=== PATIENT | female | born 1940 | race Caucasian/White ===

== ENCOUNTER 2017-08-06 10:40 | Inpatient (IN) | payer OTHER ==
[~2017-08-06] VITALS: Ht 160 cm; Wt 102.1 kg
[~2017-08-06 10:40] MED LIST: ACETAMINOPHEN500 M4 PO; AMLODIPINE BESY10 M1 PO; AMOX-CLAV 875-1 EACH PO; ASPIRIN EC81 M1 PO; ATORVASTATIN CA20 M1 PO; BENEFIBER152 GM PO; CLOTRIMAZOLE10 M1 PO; COLACE100 M1 PO; COLACE100 MG PO; GLIMEPIRIDE4 M1 PO; HYDROCHLOROTH12.5 M3 PO; JANUVIA25 MG PO; JANUVIA50 M1 PO; LEVOTHYROXINE25 MCG PO; LOSARTAN POTASS25 M1 PO; METROCREAM45 GM TOP; MINOCYCLINE HC100 M1 PO; MIRALAX17 G1 PO; MUPIROCIN22 GM TOP; PERCOCET 325 MG1 TA2 PO; POTASSIUM CITR10 ME1 PO; SENOKOT NATURA8.6 MG PO; TAMIFLU30 M1 PO; VOLTAREN100 GM TOP
[2017-08-06 11:52] LABS: ABSOLUTE BASOPHIL COUNT 0 /CUMM (0.0-0.2); ABSOLUTE EOSINOPHIL COUNT 0.2 /CUMM (0.0-0.7); ABSOLUTE LYMPH COUNT 1.9 /CUMM (1.2-3.4); ABSOLUTE MONOCYTE COUNT 0.8 /CUMM (0.10-0.60); BASOPHIL % 0.2 % (0.0-2.0); EOSINOPHIL % 1.3 % (0-5); GRANULOCYTE % 82.8 % (42.2-75.2); HEMATOCRIT 37.7 % (37-47); MEAN CORPUSCULAR HGB CONC 32.9 G/DL (33.0-37.0); MEAN CORPUSCULAR VOLUME 85.1 FL (81.0-99.0); MEAN PLATELET VOLUME 6.7 FL (7.4-10.4); PLATELET COUNT 279 /CUMM (130-400); RBC DISTRIBUTION WIDTH 16.1 % (11.5-14.5); RED BLOOD CELL CT 4.43 /CUMM (4.20-5.40); WHITE BLOOD CELL COUNT 16.9 /CUMM (4.8-10.8)
--- NOTE | 2017-08-06 12:10 | CT SCAN REPORT ---
EXAMINATION: CT HEAD WITHOUT CONTRAST CLINICAL INFORMATION: Syncope. COMPARISON: CT head 03/28/2016. TECHNIQUE: Contiguous axial imaging was performed from the skull base to vertex without intravenous administration of contrast. DLP: 608.88 mGy-cm FINDINGS: There is no acute intracranial hemorrhage or abnormal extra-axial collection. No intracranial mass effect midline shift. Lateral and third ventricles are normal. No hydrocephalus. Greenberg-white matter differentiation is grossly preserved and there is no evidence of acute territorial infarct. The calvarium and skull base are intact. Mastoid air cells and middle ear cavities are well-aerated. Visualized paranasal sinuses are well-aerated. IMPRESSION: Unremarkable CT scan of the head. No evidence of acute territorial infarct or hemorrhage.
--- NOTE | 2017-08-06 12:33 | ED SYNCOPE COMPLAINT ---
History of Present Illness General Chief Complaint: Syncope and Near-Syncope Stated Complaint: BIBA SYNCOPE Source: patient, old records Exam Limitations: no limitations Vital Signs & Intake/Output Vital Signs & Intake/Output Vital Signs Date Time Temp Pulse Resp B/P B/P Pulse O2 O2 Flow FiO2 Mean Ox Delivery Rate 08/06 1227 Room Air 08/06 1119 97.9 97 15 128/70 94 Room Air Room Air Allergies Coded Allergies: orange juice (Intermediate, SCRATCHY THROAT 08/06/17) [place] And Derivatives (SCRATCHY THROAT 08/06/17) lemon (LEMON JUICE SCRATCHY THROAT 08/06/17) morphine (SYNCOPE 08/06/17) sulfamethoxazole (From BACTRIM) (NAUSEA, LIGHT HEADED 08/06/17) trimethoprim (From BACTRIM) (NAUSEA, LIGHT HEADED 08/06/17) Reconcile Medications Acetaminophen 500 MG TABLET 1 TAB PO BID PRN PAIN (Reported) Amlodipine Besylate 10 MG TABLET 1 TAB PO DAILY BP (Reported) Aspirin (Ecotrin*) 81 MG TABLET.DR 1 TAB PO DAILY HEART/BLOOD (Reported) Atorvastatin Calcium 20 MG TABLET 1 TAB PO QHS CHOLESTEROL (Reported) Glimepiride 4 MG TABLET 1 TAB PO DAILY DM (Reported) Hydrochlorothiazide 12.5 MG CAPSULE 1 CAP PO DAILY DIURETIC (Reported) Levothyroxine Sodium 25 MCG TABLET 1 TAB PO DAILY THYROID (Reported) Losartan Potassium 25 MG TABLET 1 TAB PO DAILY BP (Reported) Metformin HCl 500 MG TABLET 1 TAB PO BID DIABETES (Reported) Metronidazole (Metrocream) 0.75 % CREAM..G. 1 DUY TOP BID ROSACEA (Reported) apply to affected area(s) Polyethylene Glycol 3350 (Miralax) 17 GRAM POWD.PACK 1 PAC PO DAILY GI ( Reported) dissolve in water Potassium Citrate (Potassium Citrate ER) 10 MEQ (1,080 MG) TABLET.ER 1 TAB PO BID KIDNEY STONES (Reported) Sitagliptin Phosphate (Januvia) 50 MG TABLET 1 TAB PO DAILY DM (Reported) Triage Note: PT BIBA FROM HOME FOR C/C OF LIGHTHEADEDNESS AND "WOOZY" FEELING THIS MORNING. PT REPORTS THAT THIS MORNING SHE HAD +LOC FOR UNKNOWN AMOUNT OF TIME. PT HAS PASSED OUT IN THE PAST AND SAT DOWN BEFORE SHE PASSED OUT. NO FALL. +SOB ON EXERTION. WENT TO [employer] YESTERDAY AND HAD MULTIPLE TESTS DONE, BUT UNSURE OF RESULTS. Triage Nurses Notes Reviewed? yes Timing: single episode today Precipitating Factors: lightheadedness Loss of Consciousness: brief (seconds) HPI: 77-year-old female comes into the emergency room for further evaluation after having a syncopal episode that occurred at home. Patient reports that she was feeling lightheaded and dizzy and she was on the toilet brushing her teeth and that she lost consciousness. She denies any associated chest pain shortness of breath. She reports that she has had this happen to her prior. The last time was a couple years ago. She comes in for further evaluation. (Rodri Toro) Past History Travel History Traveled to [place] past 21 day No Medical History Any Pertinent Medical History? 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 No (Rodri Toro) Review of Systems Review of Systems Constitutional: Reports: no symptoms. EENTM: Reports: no symptoms. Respiratory: Reports: no symptoms. Cardiovascular: Reports: see HPI. GI: Reports: no symptoms. Genitourinary: Reports: no symptoms. Musculoskeletal: Reports: no symptoms. Skin: Reports: no symptoms. Neurological/Psychological: Reports: no symptoms. All Other Systems: Reviewed and Negative (Rodri Toro) Physical Exam Physical Exam General Appearance: well developed/nourished, alert, awake Head: atraumatic Eyes: Bilateral: normal appearance. Ears, Nose, Throat: normal ENT inspection, hearing grossly normal Neck: normal inspection Respiratory: normal breath sounds, no respiratory distress Cardiovascular: regular rate/rhythm Back: normal inspection Extremities: normal inspection Psychiatric: awake, alert, oriented x 3 Cranial Nerves: normal hearing, normal speech Motor/Sensory: no motor/sensory deficits Skin: intact, normal color Core Measures ACS in differential dx? Yes CVA/TIA Diagnosis: No Sepsis Present: No Sepsis Focused Exam Completed? No (Rodri Toro) Progress Differential Diagnosis: AMI, aortic valve, drug induced syncope, orthostatic syncope, other valvular disease, pacemaker malfunction, pulmonary embolus, sick sinus syndrome, TIA/CVA, vasodepressor syncope, ventricular tach/fib Diagnostic Imaging: Viewed by Me: Radiology Read, CT Scan. Discussed w/RAD: Radiology Read, CT Scan. Radiology Impression: PATIENT: WILBERTO HELLER PRESENT AGE: 77 PATIENT ACCOUNT NO: [id number] : 42 LOCATION: [facility] ORDERING PHYSICIAN: Leonid Ni MD SERVICE DATE: 08/06/17 EXAM TYPE : RAD - XRY-CHEST XRAY, TWO VIEWS EXAMINATION: XR CHEST CLINICAL INFORMATION: Syncope COMPARISON: Chest CT dated 07/22/2017 TECHNIQUE: 2 views of the chest were obtained. FINDINGS: The heart is enlarged and there is no evidence of CHF. There is some tenting of the left hemidiaphragm, but the costophrenic angles are sharp and there is no evidence of effusion. Similar findings were present on the recent CT scan. IMPRESSION: No acute intrathoracic disease. DICTATED BY: Janusz Richmond MD DATE/TIME DICTATED:08/06/171207 COSMETOLOGIST:ZORAN DATE/ TIME TRANSCRIBED:08/06/171207 CONFIDENTIAL, DO NOT COPY WITHOUT APPROPRIATE AUTHORIZATION. <Electronically signed in Other Vendor System> SIGNED BY: Janusz Richmond MD 08/06/17 1234, PATIENT: WILBERTO HELLER PRESENT AGE: 77 PATIENT ACCOUNT NO: [id number] : 42 LOCATION: [facility] ORDERING PHYSICIAN: Leonid Ni MD SERVICE DATE: 08/06/17 EXAM TYPE : CAT - CT HEAD WO IV CONTRAST EXAMINATION: CT HEAD WITHOUT CONTRAST CLINICAL INFORMATION: Syncope. COMPARISON: CT head 03/28/2016. TECHNIQUE: Contiguous axial imaging was performed from the skull base to vertex without intravenous administration of contrast. DLP: 608.88 mGy-cm FINDINGS: There is no acute intracranial hemorrhage or abnormal extra-axial collection. No intracranial mass effect midline shift. Lateral and third ventricles are normal. No hydrocephalus. Greenberg-white matter differentiation is grossly preserved and there is no evidence of acute territorial infarct. The calvarium and skull base are intact. Mastoid air cells and middle ear cavities are well-aerated. Visualized paranasal sinuses are well-aerated. IMPRESSION: Unremarkable CT scan of the head. No evidence of acute territorial infarct or hemorrhage. DICTATED BY: Moe Glez MD DATE /TIME DICTATED:08/06/171203 COSMETOLOGIST:ZORAN DATE/TIME TRANSCRIBED: 08/06/171203 CONFIDENTIAL, DO NOT COPY WITHOUT APPROPRIATE AUTHORIZATION. < Electronically signed in Other Vendor System> SIGNED BY: Moe Glez MD 08/06/17 1210 Initial ED EKG: normal sinus rhythm, rate (99), nonspecific ST T wave chg (Rodri Toro) Plan of Care: Orders Procedure Date/time Status TSH REFLEX 08/07 0600 Active Consistent Carbohydrate 1 08/06 D Active Patient Data 08/06 1545 Active Misc Message 08/06 1538 Active ED Holding Orders 08/06 1538 Active Admit to inpatient 08/06 1538 Active Vital Signs 08/06 1538 Active Code Status 08/06 1538 Active URINALYSIS 08/06 1302 Active MISTAKE 08/06 1113 Active TROPONIN LEVEL 08/06 1113 Complete COMPREHENSIVE METABOLIC PANEL 08/06 1113 Complete CBC WITHOUT DIFFERENTIAL 08/06 1113 Complete EKG 08/06 1043 Active Laboratory Tests 08/06/17 1132: Anion Gap 15, Estimated GFR 34 L, BUN/Creatinine Ratio 15.3, Glucose 159 H, Calcium 9.3, Total Bilirubin 0.7, AST 24, ALT 28, Alkaline Phosphatase 72, Troponin I < 0.01, Total Protein 7.7, Albumin 4.0, Globulin 3.7, Albumin/ Globulin Ratio 1.1, CBC w Diff MAN DIFF ORDERED, RBC 4.43, MCV 85.1, MCH 28.0, MCHC 32.9 L, RDW 16.1 H, MPV 6.7 L, Gran % 82.8 H, Lymphocytes % 11.0 L, Monocytes % 4.7, Eosinophils % 1.3, Basophils % 0.2, Absolute Granulocytes 14.0 H, Segmented Neutrophils 77 H, Band Neutrophils 4, Absolute Lymphocytes 1.9, Lymphocytes 12 L, Monocytes 5, Absolute Monocytes 0.8 H, Eosinophils 2, Absolute Eosinophils 0.2, Absolute Basophils 0, Platelet Estimate VERIFIED BY SMEAR, Normocytic RBCs VERIFIED, Normochromic RBCs VERIFIED Comments: 08/06/2017 3:35:50 PM patient's case discussed with Dr. Conley. (Raine LOCK,Leonid Jenkins) Departure Departure Disposition: STILL A PATIENT Condition: Stable Clinical Impression Primary Impression: Syncope Secondary Impressions: Leukocytosis Referrals: Mariam Billings MD (PCP/Family) Departure Forms: Customer Survey General Discharge Information Admission Note Spoke With: Jacky Conley MD Documentation of Exam: Documentation of any treatments & extenuating circumstances including Concerns Regarding Discharge (functional status, medication knowledge or non-compliance, living conditions, etc.) that warrant an admission rather than observation: Cardiac telemetry. Serial troponins. Echocardiogram. Cardiac consultation. (Rodri Toro) PA/CORPORATE RELATIONS DIRECTOR Co-Sign Statement Statement: ED Attending supervision documentation- [X] I saw and evaluated the patient. I have also reviewed all the pertinent lab results and diagnostic results. I agree with the findings and the plan of care as documented in the PA's/CORPORATE RELATIONS DIRECTOR's documentation. Patient presents for evaluation of a syncopal episode while sitting on her toilet. Physical examination reveals nonfocal neurologic examination and unremarkable heart-lung examination. [] I have reviewed the ED Record and agree with the PA's/CORPORATE RELATIONS DIRECTOR's documentation. [] Additions or exceptions (if any) to the PAs/CORPORATE RELATIONS DIRECTOR's note and plan are summarized below: [] (Raine LOCK,Leonid Jenkins)
[2017-08-06] MEDS ORDERED: METFORMIN HCL500 M3 PO (12:54)
--- NOTE | 2017-08-06 15:54 | History & Physical ---
Luisana LOCKPaulo 08/06/17 1554: General Information and HPI History of Present Illness: 77-year-old woman with past medical history of hypertension, chronic kidney disease stage III, nephrolithiasis, eym-jyksosi-vwtqaedcz diabetes mellitus, hypothyroidism, osteoarthritis, and vasovagal syncope seen for evaluation of lightheadedness with loss of consciousness. Patient reports waking today in her normal state of health around 9 AM when she went to use the restroom and had a large formed bowel movement. She went to sit on the couch after but suddenly had to have another bowel movement which was subsequently loose. Patient went to brush her teeth when she was standing at the sink and suddenly became very lightheaded and dizzy. She sat down on the toilet and grabbed onto the insult handlebar. She lost consciousness for an unknown amount of time but awoke still sitting on the toilet. She did not become incontinent of urine or have any preceding aura. She did not bite her tongue or sustain any injuries. Patient reports not taking her medications or drinking any fluids or eating breakfast this morning. She reports that this happened several times in the past but was scared and called 911 for which she is brought to the [facility] for further evaluation. Presently she states that she feels well and has no complaints. Review of systems Specifically she denies any headache, fever, chills, blurred/double vision, current lightheadedness/dizziness, chest pain, palpitations, heartburn, orthopnea, PND, shortness of breath, cough, nausea, vomiting, diarrhea, constipation. Objective Vital signs -Temperature: 97.9 -Heart rate: 97 -Respiratory rate: 15 -Blood pressure: 128/70 -O2 sat: 94% on room air Physical exam -Gen.: Well-developed, well-nourished elderly woman in no acute distress -HEENT: NCAT, PERRLA, EOMI, anicteric sclera, moist mucous membranes -Neck: Supple, no JVD, trachea midline -Cardio: Normal S1/S2 without murmurs/gallops/rubs; tachycardic -Pulmonary: Clear to auscultation bilaterally -Abdomen: Soft, nontender, nondistended, bowel sounds intact -Neuro: Awake and alert, cranial nerves II through XII grossly intact -Extremities: Trace bilateral pedal edema Labs/imaging/studies -CBC: WBC/band 16.9/4, hemoglobin 12.4, hematocrit 37.7, platelets 279 -BMP: Sodium 138 potassium 4.5, chloride 101, CO2 22, urea 23, creatinine 1.5, anion gap 15, glucose 159 -LFT: Within normal limits -Miscellaneous: Troponin I <0.01 -EKG: normal sinus rhythm, HR 90, nonspecific ST segment changes and inferior leads -CXR: No acute intrathoracic disease -CT head without IV contrast: * Unremarkable CT scan of the head. No evidence of acute territorial infarct or hemorrhage. Assessment 77-year-old woman with multiple medical problems significant for vasovagal syncope seen for evaluation after sustaining another syncopal episode. Patient meets SIRS criteria through leukocytosis and tachycardia without any obvious infectious source. Chest x-ray and urinalysis are unremarkable. Patient's syncopal episode may be due to the patient missing her medication this morning and not eating/drinking with relative dehydration due to frequent loose bowel movements and straining increasing vagal tone. Patient has tachycardia of unclear etiology up to the 140s that appear sinus but quickly reverts to the 100s-110s. Patient is to be admitted to the telemetry floor for further monitoring and be evaluated by the cardiology service with a repeat echocardiogram and serial EKG/ troponin. Patient's orthostatic blood pressures will be assessed and she will be gently hydrated with intravenous fluids. Problem List -Syncope, likely vasovagal -SIRS, no clear source -Loose stool -Chronic Kidney Disease -Shortness of breath, reportedly may have "Sjogrens" -Non-insulin dependent diabetes mellitus -History of vasovagal syncope -Nephrolithiasis -Osteoarthritis Plan -Admit to telemetry -Telemetry monitoring -Check orthostatics -Accuchecks TIDAC/HS with Novolog sliding scale insulin -Encourage oral hydration -NS 1L @ 75 mL/hr x1 bag -Continue home meds: amlodipine, aspirin, atorvastatin, levothyroxine, losartan, potassium -Hold meds: glimepiride, hydrochlorothiazide, metformin, sitagliptin, miralax -Cardiology consult -Consider pulmonology consult with Dr. Perry -Obtain transthoracic echocardiogram -Trend troponin / ekg until peak or three negative sets -Check TSHR -Pain control with acetaminophen -Diabetic diet -DVT PPx with subcutaneous heparin -FULL CODE Allergies/Medications Allergies: Coded Allergies: orange juice (Intermediate, SCRATCHY THROAT 08/06/17) [place] And Derivatives (SCRATCHY THROAT 08/06/17) lemon (LEMON JUICE SCRATCHY THROAT 08/06/17) morphine (SYNCOPE 08/06/17) sulfamethoxazole (From BACTRIM) (NAUSEA, LIGHT HEADED 08/06/17) trimethoprim (From BACTRIM) (NAUSEA, LIGHT HEADED 08/06/17) Home Med list Acetaminophen 500 MG TABLET 1 TAB PO BID PRN PAIN (Reported) Amlodipine Besylate 10 MG TABLET 1 TAB PO DAILY BP (Reported) Aspirin (Ecotrin*) 81 MG TABLET.DR 1 TAB PO DAILY HEART/BLOOD (Reported) Atorvastatin Calcium 20 MG TABLET 1 TAB PO QHS CHOLESTEROL (Reported) Glimepiride 4 MG TABLET 1 TAB PO DAILY DM (Reported) Hydrochlorothiazide 12.5 MG CAPSULE 1 CAP PO DAILY DIURETIC (Reported) Levothyroxine Sodium 25 MCG TABLET 1 TAB PO DAILY THYROID (Reported) Losartan Potassium 25 MG TABLET 1 TAB PO DAILY BP (Reported) Metformin HCl 500 MG TABLET 1 TAB PO BID DIABETES (Reported) Metronidazole (Metrocream) 0.75 % CREAM..G. 1 DUY TOP BID ROSACEA (Reported) apply to affected area(s) Polyethylene Glycol 3350 (Miralax) 17 GRAM POWD.PACK 1 PAC PO DAILY GI ( Reported) dissolve in water Potassium Citrate (Potassium Citrate ER) 10 MEQ (1,080 MG) TABLET.ER 1 TAB PO BID KIDNEY STONES (Reported) Sitagliptin Phosphate (Januvia) 50 MG TABLET 1 TAB PO DAILY DM (Reported) Past History Travel History Traveled to [place] past 21 day No Medical History Neurological: NONE EENT: cataracts Cardiovascular: hypertension Respiratory: bronchitis Gastrointestinal: NONE Hepatic: NONE Renal: chronic kidney disease, nephrolithiasis, L KIDNEY NONFUNCTIONING Musculoskeletal: STAPH INFECTION AND MRSA IN WOUND Psychiatric: NONE Endocrine: diabetes, hypothyroidism Blood Disorders: NONE 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 self Services at Home: None ETOH Use: denies use Illicit Drug Use: denies illicit drug use Name of POA/HCP: brother William gibson Functional Ability ADLs Independent: dressing, eating, toileting, bathing. Ambulation: independent IADLs Independent: shopping, housework, finances, food prep, telephone, transportation , medication admin. Review of Systems Review of Systems Constitutional: Reports: see HPI. Exam & Diagnostic Data Last 24 Hrs of Vital Signs/I&O Vital Signs Date Time Temp Pulse Resp B/P B/P Pulse O2 O2 Flow FiO2 Mean Ox Delivery Rate 08/06 1227 Room Air 08/06 1119 97.9 97 15 128/70 94 Room Air Room Air Intake & Output 08/06 1600 08/06 0800 08/06 0000 Intake Total Output Total Balance Patient 105.687 kg Weight Weight Reported by Patient Measurement Method Assessment/Plan As Ranked By This Provider Problem List: 1. Syncope Core Measures/Misc (12/28) Acute Coronary Syndrome ACS Diagnosis: No Congestive Heart Failure Congestive Heart Failure Diagnosis No Cerebrovascular Accident CVA/TIA Diagnosis: No VTE (View Protocol) VTE Risk Factors Age>40 No Mechanical VTE Prophylaxis d/t N/A MechProphylax Ordered No VTE Pharm Prophylaxis d/t NA PharmProphylax ordered Sepsis (View protocol) Sepsis Present: No Jacky Conley MD 08/06/17 1733: Attending MD Review Statement Attending Statement Attending MD Statement: examined this patient, discuss w/resident/PA/FORENSIC ECONOMIST, agreed w/resident/PA/FORENSIC ECONOMIST, reviewed EMR data (avail), discussed with nursing, amended to note Attending Assessment/Plan: Patient is a very pleasant 81-year-old female who presents to the emergency room following a syncopal episode at home. Prior to the episode she had gone to the bathroom on 2 occasions to move her bowels. She reports brushing her teeth when she felt dizzy and decided to sit on the toilet bowl for fear of falling. She reports passing out at that time. She reports she was out for an unknown period of time. She denies any tongue biting or incontinence associated with episodes. She was admitted to [facility] she is ago with a syncopal episode there was attributed to a vasovagal event at that time. Patient reports that in recent time baseline she is short of breath with mild to moderate activity. She reports that with activity she does notes palpitations on occasions. Symptoms resolve with rest. She reports an extensive workup performed by her web development consultant including pulmonary function testing that showed restrictive lung disease. She is scheduled to undergo sleep study and was being planned for an echocardiogram in the outpatient setting. She denies any episodes of loss of consciousness prior to the episode today. Denies nausea vomiting. Denies abdominal pain. Denies dysuria. Denies urinary frequency. I did not do my conversation with the patient while talking she developed tachycardia into the 140s. When she stopped heart rate came down into the 90s. This according a few times during my evaluation of the patient. General appearance: Well-developed and not in any acute distress. HEENT: Anicteric, no pallor, pupils equal and reactive. Neck: Supple with no jugular venous distention. Heart: S1-S2 regular with no audible murmur. Lungs: Adequate and symmetric air entry bilaterally with no added sounds. Abdomen: Nondistended with normal bowel sounds. Soft, nontender with no palpable masses. Extremities: No pedal edema. No cyanosis. Skin: Intact Laboratory data shows creatinine of 1.5 which is at her baseline. She has a leukocytosis of 16,000. Hemoglobin is within normal limits. Urinalysis is not suggestive of an infectious process. Chest x-ray shows no acute intrathoracic disease. EKG shows sinus rhythm with nonspecific T-wave changes in the inferior lateral leads. Problems: 1. Syncope 2. Wzb-jsevhth-cnexbzeoq diabetes 3. Hypothyroidism 4. Hypertension 5. Chronic kidney disease stage III. 6. Leukocytosis. Plan: -Patient's abnormal EKG and sinus tachycardia with minimal exertion raises concern for cardiac etiology of her loss of consciousness. Would recommend monitoring the patient further on the telemetry floor. Trend cardiac enzymes. Obtain echocardiogram. Obtain cardiology consultation. -Check orthostatic vitals. -Recommend gentle hydration with normal saline for 1 L. -Continue her antihypertensive regimen. -Hold oral hypoglycemic medications and provide sliding scale coverage. -Check TSH and continue levothyroxine.
--- NOTE | 2017-08-06 16:44 | PN- Student ---
Subjective Subjective: CC: "I passed out" HPI: 77 y/o F with PMHx of HTN, CKD, nephrolithiasis, DM, hypothiroidsm, staph and MSRA wound infection who presented to the ED aftr syncope episode. Patient reported that around 9:00am she went to the restroom and after a loose bowel movement was noted, she sat in the couch
[2017-08-06 19:49] VITALS: BP 128/76
[2017-08-06 22:21] VITALS: BP 142/74
[2017-08-07 07:23] VITALS: BP 118/64
--- NOTE | 2017-08-07 07:26 | PN- Housestaff ---
Racquel LOCK,Melisa 08/07/17 0726: Subjective Follow-up For: -Syncope, likely vasovagal -SIRS, no clear source -Loose stool -Chronic Kidney Disease -Shortness of breath, reportedly may have "Sjogrens" -Non-insulin dependent diabetes mellitus Tele-Events Since Last Visit: No overnight events Subjective: Patient was seen and examined at bedside, she denies any complaints, no overnight events Review of Systems Constitutional: Reports: see HPI. Objective Last 24 Hrs of Vital Signs/I&O Vital Signs Date Time Temp Pulse Resp B/P B/P Pulse O2 O2 Flow FiO2 Mean Ox Delivery Rate 08/07 0952 132/70 08/07 0952 132/70 08/07 0939 94 132/70 08/07 0723 99.3 107 22 118/64 97 Room Air 08/06 2221 99.4 97 24 142/74 94 08/06 1949 98.4 108 20 128/76 98 08/06 1926 89 136/89 08/06 1926 89 136/89 08/06 1907 98.1 89 16 136/89 97 Room Air Intake & Output 08/07 1600 08/07 0800 08/07 0000 Intake Total 110 80 Output Total Balance 110 80 Intake, IV 10 Intake, Oral 100 80 Patient 225 lb Weight Weight Bed scale Measurement Method Physical Exam General Appearance: Alert, Oriented X3, Cooperative, No Acute Distress HEENT: Atraumatic, PERRLA, EOMI, Mucous Membr. moist/pink Cardiovascular: Normal S1, Normal S2 Lungs: Clear to Auscultation Abdomen: Normal Bowel Sounds, Soft Extremities: No Clubbing, No Cyanosis, trace bilateral LE edema Vascular: Normal Pulses Assessment/Plan Assessment: 77-year-old woman with multiple medical problems significant for vasovagal syncope seen for evaluation after sustaining another syncopal episode. Most likely vasovagal Patient meets SIRS criteria through leukocytosis and tachycardia without any obvious infectious source. Chest x-ray and urinalysis are unremarkable. Patient's syncopal episode may be due to the patient missing her medication this morning and not eating/drinking with relative dehydration due to frequent loose bowel movements and straining increasing vagal tone. Patient has tachycardia of unclear etiology up to the 140s that appear sinus but quickly reverts to the 100s-110s. Problem List -Syncope, likely vasovagal -SIRS, no clear source -Loose stool -Chronic Kidney Disease -Shortness of breath, reportedly may have "Sjogrens" -Non-insulin dependent diabetes mellitus -History of vasovagal syncope -Nephrolithiasis -Osteoarthritis Plan -Continue to monitor on telemetry -orthostatics are negative -Accuchecks TIDAC/HS with Novolog sliding scale insulin -Encourage oral hydration -Continue home meds: amlodipine, aspirin, atorvastatin, levothyroxine, losartan, potassium -Hold meds: glimepiride, hydrochlorothiazide, metformin, sitagliptin, miralax -Cardiology reccommodation appreciated -Obtain transthoracic echocardiogram -EKG were negative which ruled out ACS -Pain control with acetaminophen -Diabetic diet -DVT PPx with subcutaneous heparin -FULL CODE Problem List: 1. Syncope Pain Ratin Pain Location: N/A Pain Goal: Remain pain free Pain Plan: pathway Tomorrow's Labs & Rationales: cbc bep Yas Flor MD 08/07/17 1247: Attending MD Review Statement Attending Statement Attending MD Statement: examined this patient, discuss w/resident/PA/COMMERCIAL TIRE SERVICE TECHNICIAN, agreed w/resident/PA/COMMERCIAL TIRE SERVICE TECHNICIAN, reviewed EMR data (avail) Attending Assessment/Plan: 77F PMH hypertension, chronic kidney disease stage III, nephrolithiasis, non- insulin-dependent diabetes mellitus, hypothyroidism, osteoarthritis, and vasovagal syncope presents with syncopal episode. Patient had not eaten, was brushing her teeth, felt lighteaded, sat on the toilet for support, and passed out for a few seconds. She had no symptoms after and recovered quickly. She denies chest pain or palpitations prior to syncope. EKG on admission showed non -specific T-wave changes in inferior leads. Troponin negative. Today she feels well and has no complaints. She has not been lightheaded, denies chest pain or palpitations, and was able to ambulate. No telemetry events. Mg 1.5, WBC 16, no clinical or laboratory signs of infection. 1. Syncope and collapse 2. Leukocytosis 3. CKD stage 3 4. Hypomagnesemia Plan - Continue on telemetry - Echocardiogram - Cardiology consult - Check orthostatics - Replete magnesium with Slo-mag - Follow cultures - Continue home medications - DVT PPx - Anticipated discharge home tomorrow
--- NOTE | 2017-08-07 07:47 | Cons- Cardiology ---
General Information and HPI Consulting Request Date of Consult: 08/07/17 Requested By: Jacky Conley MD Reason for Consult: syncope Source of Information: patient, old records Exam Limitations: no limitations History of Present Illness: The patient there is a very nice 77-year-old female who is well-known to me. Patient is now admitted to the hospital for further evaluation of a syncopal episode. The patient reports that she was feeling okay earlier yesterday. Subsequently, she had an upset stomach, took Pepto-Bismol, and went to the bathroom. While standing at the bathroom sink, she became lightheaded and sat on the toilet. She held onto the nearby support railing but ultimately feels that she passed out for at least a few seconds. Subsequently, she walked to her bed but had no recurrence of any significant symptoms. There was no evidence of incontinence or any other major issues. She denied any other cardiac symptoms at that time. Allergies/Medications Allergies: Coded Allergies: orange juice (Intermediate, SCRATCHY THROAT 08/06/17) [place] And Derivatives (SCRATCHY THROAT 08/06/17) lemon (LEMON JUICE SCRATCHY THROAT 08/06/17) morphine (SYNCOPE 08/06/17) sulfamethoxazole (From BACTRIM) (NAUSEA, LIGHT HEADED 08/06/17) trimethoprim (From BACTRIM) (NAUSEA, LIGHT HEADED 08/06/17) Home Med List: Acetaminophen 500 MG TABLET 1 TAB PO BID PRN PAIN (Reported) Amlodipine Besylate 10 MG TABLET 1 TAB PO DAILY BP (Reported) Aspirin (Ecotrin*) 81 MG TABLET.DR 1 TAB PO DAILY HEART/BLOOD (Reported) Atorvastatin Calcium 20 MG TABLET 1 TAB PO QHS CHOLESTEROL (Reported) Glimepiride 4 MG TABLET 1 TAB PO DAILY DM (Reported) Hydrochlorothiazide 12.5 MG CAPSULE 1 CAP PO DAILY DIURETIC (Reported) Levothyroxine Sodium 25 MCG TABLET 1 TAB PO DAILY THYROID (Reported) Losartan Potassium 25 MG TABLET 1 TAB PO DAILY BP (Reported) Metformin HCl 500 MG TABLET 1 TAB PO BID DIABETES (Reported) Metronidazole (Metrocream) 0.75 % CREAM..G. 1 DUY TOP BID ROSACEA (Reported) apply to affected area(s) Polyethylene Glycol 3350 (Miralax) 17 GRAM POWD.PACK 1 PAC PO DAILY GI ( Reported) dissolve in water Potassium Citrate (Potassium Citrate ER) 10 MEQ (1,080 MG) TABLET.ER 1 TAB PO BID KIDNEY STONES (Reported) Sitagliptin Phosphate (Januvia) 50 MG TABLET 1 TAB PO DAILY DM (Reported) Past History Travel History Traveled to [place] past 21 day No Medical History Blood Transfusion Hx: No Neurological: NONE EENT: cataracts Cardiovascular: hypertension Respiratory: bronchitis Gastrointestinal: NONE Hepatic: NONE Renal: chronic kidney disease, nephrolithiasis, L KIDNEY NONFUNCTIONING Musculoskeletal: STAPH INFECTION AND MRSA IN WOUND Psychiatric: NONE Endocrine: diabetes, hypothyroidism Blood Disorders: NONE Cancer(s): NONE ACCOUNT AUDITOR/Reproductive: NONE Surgical History Surgical History: appendectomy, cholecystectomy, cataract removal, BILAD KNEE TONSILLECTOMY KIDNEY STONE (b/l) Family History Relations & Conditions If Any: FATHER FH: coronary artery disease MOTHER FH: coronary artery disease Psychosocial History Where Do You Live? Home Who Do You Live With? self Services at Home: None Smoking Status: Former Smoker ETOH Use: denies use Illicit Drug Use: denies illicit drug use Name of POA/HCP: brother William gibson Functional Ability ADLs Independent: dressing, eating, toileting, bathing. Ambulation: independent IADLs Independent: shopping, housework, finances, food prep, telephone, transportation , medication admin. Exam & Diagnostic Data Vital Signs and I&O Vital Signs Date Time Temp Pulse Resp B/P B/P Pulse O2 O2 Flow FiO2 Mean Ox Delivery Rate 08/07 722 99.3 107 22 118/64 97 Room Air 08/06 2220 99.4 97 24 142/74 94 08/06 194 98.4 108 20 128/76 98 08/06 1925 89 136/89 08/06 1925 89 136/89 08/06 1907 98.1 89 16 136/89 97 Room Air 08/06 1227 Room Air 08/06 1119 97.9 97 15 128/70 94 Room Air Room Air Intake & Output 08/07 0808/07 1600 08/06 1600 Intake Total 110 80 Output Total Balance 110 80 Intake, IV 10 Intake, Oral 100 80 Patient 225 lb 233 lb Weight Weight Bed scale Reported by Patient Measurement Method Physical Exam: General Appearance: well developed/nourished, alert, awake, oriented Head: normal HEENT: Normal Neck: supple, JVP normal, carotid upstrokes normal bilaterally, no masses or thyromegaly Respiratory: chest non-tender, clear to auscultation and percussion bilaterally Cardiovascular: regular rate/rhythm, normal S1, S2, 1/6 systolic murmur Abdomen: normal bowel sounds, soft, non-tender Extremities: normal inspection, no edema Vascular: Pulses are 2+ and equal bilaterally Neurologic: Grossly normal/nonfocal Labs/Handy Results: Laboratory Tests 08/07 08/07 08/07 08/06 0708 0600 0216 1999 Chemistry Sodium Pending Potassium Pending Chloride Pending Carbon Dioxide Pending Anion Gap Pending BUN Pending Creatinine Pending BUN/Creatinine Ratio Pending Magnesium Pending Cancelled Troponin I (< 0.11 ng/ml) < 0.01 < 0.01 TSH &T3 &Free T4 Intrp Pending Hematology CBC w Diff Pending WBC Pending RBC Pending Hgb Pending Hct Pending MCV Pending MCH Pending MCHC Pending RDW Pending Plt Count Pending MPV Pending 08/06 1640 Urines Urine Color (YEL,AMB,STR) YEL Urine Clarity (CLEAR) CLEAR Urine pH (5.0 - 8.0) 6.0 Ur Specific [place] (1.001 - 1.035) 1.025 Urine Protein (NEG,<30 MG/DL) NEG Urine Ketones (NEG) NEG Urine Nitrite (NEG) NEG Urine Bilirubin (NEG) NEG Urine Urobilinogen (0.1 - 1.0 EU/dl) 0.2 Ur Leukocyte Esterase (NEG) TRACE H Ur Microscopic SEDIMENT EXAMINED Urine WBC (0 - 2 /HPF) 1-3 H Ur Epithelial Cells (NONE,FEW) RARE Urine Hemoglobin (NEG) NEG Urine Glucose (N MG/DL) NEG 08/06 1132 Chemistry Sodium (137 - 145 mmol/L) 138 Potassium (3.5 - 5.1 mmol/L) 4.5 Chloride (98 - 107 mmol/L) 101 Carbon Dioxide (22 - 30 mmol/L) 22 Anion Gap (5 - 16) 15 BUN (7 - 17 mg/dL) 23 H Creatinine (0.5 - 1.0 mg/dL) 1.5 H Estimated GFR (>60 ml/min) 34 L BUN/Creatinine Ratio (7 - 25 %) 15.3 Glucose (65 - 99 mg/dL) 159 H Calcium (8.4 - 10.2 mg/dL) 9.3 Total Bilirubin (0.2 - 1.3 mg/dL) 0.7 AST (14 - 36 U/L) 24 ALT (9 - 52 U/L) 28 Alkaline Phosphatase (<127 U/L) 72 Troponin I (< 0.11 ng/ml) < 0.01 Total Protein (6.3 - 8.2 g/dL) 7.7 Albumin (3.5 - 5.0 g/dL) 4.0 Globulin (1.9 - 4.2 gm/dL) 3.7 Albumin/Globulin Ratio (1.1 - 2.2 %) 1.1 Hematology CBC w Diff MAN DIFF ORDERED WBC (4.8 - 10.8 /CUMM) 16.9 H RBC (4.20 - 5.40 /CUMM) 4.43 Hgb (12.0 - 16.0 G/DL) 12.4 Hct (37 - 47 %) 37.7 MCV (81.0 - 99.0 FL) 85.1 MCH (27.0 - 31.0 PG) 28.0 MCHC (33.0 - 37.0 G/DL) 32.9 L RDW (11.5 - 14.5 %) 16.1 H Plt Count (130 - 400 /CUMM) 279 MPV (7.4 - 10.4 FL) 6.7 L Gran % (42.2 - 75.2 %) 82.8 H Lymphocytes % (20.5 - 51.1 %) 11.0 L Monocytes % (1.7 - 9.3 %) 4.7 Eosinophils % (0 - 5 %) 1.3 Basophils % (0.0 - 2.0 %) 0.2 Absolute Granulocytes (1.4 - 6.5 /CUMM) 14.0 H Segmented Neutrophils (42.2 - 75.2 %) 77 H Band Neutrophils (0.0 - 5.0 %) 4 Absolute Lymphocytes (1.2 - 3.4 /CUMM) 1.9 Lymphocytes (20.5 - 51.1 %) 12 L Monocytes (1.7 - 9.3 %) 5 Absolute Monocytes (0.10 - 0.60 /CUMM) 0.8 H Eosinophils (0 - 5.0 %) 2 Absolute Eosinophils (0.0 - 0.7 /CUMM) 0.2 Absolute Basophils (0.0 - 0.2 /CUMM) 0 Platelet Estimate (ADEQUATE) VERIFIED BY SMEAR Normocytic RBCs VERIFIED Normochromic RBCs VERIFIED Assessment/Plan Assessment/Plan Assessment: 1. Syncope, likely vasovagal-by history, the patient's symptoms and episode are most consistent with vasovagal syncope. 2. CKD 3. Uos-aaolyib-onillsjip diabetes 4. History of prior vasovagal syncope 5. Nephrolithiasis 6. Osteoarthritis 7. Leukocytosis 8. Anemia 9. Hypomagnesemia Recommendations: -Monitor on telemetry for 24 hours -Out of bed as tolerated -Ambulate with assistance and monitoring of heart rate and blood pressure -Check orthostatic heart rate and blood pressure every shift 3 -Echocardiogram pending, if this cannot be performed today, then it can likely be performed later as an outpatient -Evaluation for elevated white count pending -Encourage oral hydration Consult Acknowledgment - Thank you for your consult request.
[2017-08-07 08:11] LABS: ABSOLUTE BASOPHIL COUNT 0 /CUMM (0.0-0.2); ABSOLUTE EOSINOPHIL COUNT 0.1 /CUMM (0.0-0.7); ABSOLUTE GRANULOCYTE CT 12.5 /CUMM (1.4-6.5); ABSOLUTE LYMPH COUNT 2.9 /CUMM (1.2-3.4); ABSOLUTE MONOCYTE COUNT 0.6 /CUMM (0.10-0.60); BASOPHIL % 0.2 % (0.0-2.0); EOSINOPHIL % 0.5 % (0-5); GRANULOCYTE % 77.7 % (42.2-75.2); MEAN CORPUSCULAR HGB 28.5 PG (27.0-31.0); MEAN CORPUSCULAR HGB CONC 33.3 G/DL (33.0-37.0); MEAN CORPUSCULAR VOLUME 85.8 FL (81.0-99.0); MEAN PLATELET VOLUME 7.1 FL (7.4-10.4); PLATELET COUNT 247 /CUMM (130-400); RBC DISTRIBUTION WIDTH 16.3 % (11.5-14.5); RED BLOOD CELL CT 3.78 /CUMM (4.20-5.40); WHITE BLOOD CELL COUNT 16.1 /CUMM (4.8-10.8)
[2017-08-07 09:32] LABS: HEMATOCRIT 32.4 % (37-47)
[2017-08-07 09:39] VITALS: BP 132/70
--- NOTE | 2017-08-07 12:15 | ECHOCARDIOGRAM REPORT ---
WILBERTO HELLER Age: 77 : 1940 Gender: F Exam Date: 08/07/2017 08:24 Exam Location: [place] Ht (in): 63 Wt (lb): 233 BSA: 2.22 BP: 128 / 70 Ordering Physician: Paulo Lieberman MD Referring Physician: Paulo Lieberman MD Technologist: Justin Tran [facility] Room Number: 181-1 Indications: Shortness of breath Rhythm: Sinus Technical Quality: Fair FINDINGS Left Ventricle Normal size left ventricle. No obvious regional wall motion abnormalities. Normal left ventricular ejection fraction estimated at 55-60%. Right Ventricle Right ventricle not well visualized, grossly normal. Right Atrium Normal right atrial size. Left Atrium Left atrial size at the upper limits of normal. Mitral Valve Mitral valve thickened. Trace mitral regurgitation. Aortic Valve Trileaflet aortic valve. Focal thickening of the aortic valve cusps. No aortic stenosis. No aortic regurgitation. Tricuspid Valve Tricuspid valve not well visualized, grossly normal. Mild tricuspid regurgitation. Pulmonic Valve Pulmonic valve not well visualized, grossly normal. Trace to mild pulmonic regurgitation. Pericardium Small pericardial effusion. Great Vessels Normal size aortic root and proximal ascending aorta. CONCLUSIONS 1. Aortic sclerosis is present with no valvular stenosis or insufficiency. 2. Mitral leaflet thickening is present wtih minimal mitral insufficiency. 3. A small pericardial effusion is present which is hemodynamically insignificant. 4. The left ventricular chamber size and systolic function appear normal with no resting wall motion abnormalities. 5. Mild tricuspid and pulmonic insufficiency are present wtih no evidence of pulmonary hypertension. 6. When compared to the prior echocardiogram of 2016, the pericardial effusion is a new finding Dejuan Bustillo M.D. (Electronically Signed) Final Date: 07 August 2017 12:14 MEASUREMENTS (Male / Female) Normal Values 2D ECHO LV Diastolic Diameter PLAX 5.2 cm 4.2 - 5.9 / 3.9 - 5.3 cm LV Systolic Diameter PLAX 2.9 cm 2.1 - 4.0 cm LV Fractional Shortening PLAX 44.2 % 25 - 46 % LV Ejection Fraction 2D Teich 75.1 % IVS Diastolic Thickness 0.9 cm LVPW Diastolic Thickness 0.9 cm LV Relative Wall Thickness 0.3 RV Internal Dim ED PLAX 3.5 cm 1.9 - 3.8 cm LVOT Diameter 1.8 cm Aortic Root Diameter 2.7 cm LA Systolic Diameter LX 3.4 cm 3.0 - 4.0 / 2.7 - 3.8 cm LA Volume 34.0 cm 18 - 58 / 22 - 52 cm Ascending Aorta Diameter 3.2 cm DOPPLER AV Peak Velocity 163.0 cm/s AV Peak Gradient 10.6 mmHg AV Mean Velocity 101.0 cm/s AV Mean Gradient 5.0 mmHg AV Velocity Time Integral 29.6 cm LVOT Peak Velocity 122.0 cm/s LVOT Peak Gradient 6.0 mmHg LVOT Mean Velocity 78.7 cm/s LVOT Mean Gradient 3.0 mmHg LVOT Velocity Time Integral 23.5 cm LVOT Stroke Volume 59.8 cm AV Area Cont Eq vti 2.0 cm AV Area Cont Eq pk 1.9 cm MV Peak Velocity 117.0 cm/s MV Peak Gradient 5.5 mmHg MV Mean Velocity 79.4 cm/s MV Mean Gradient 3.0 mmHg Mitral E Point Velocity 102.0 cm/s Mitral A Point Velocity 115.0 cm/s Mitral E to A Ratio 0.9 MV PHT Velocity 113.0 cm/s MV Deceleration [place] 450.0 cm/s MV Pressure Half Time 75.3 ms MV Area PHT 2.9 cm MV Deceleration Time 211.0 ms PV Peak Velocity 99.3 cm/s PV Peak Gradient 3.9 mmHg PV Mean Velocity 68.1 cm/s PV Mean Gradient 2.0 mmHg PV Velocity Time Integral 19.3 cm
--- NOTE | 2017-08-07 14:41 | Patient Discharge Instructions ---
Discharge Instructions General Discharge Information Special Instructions: Follow up with your primary care provider Dr. Billings next week for a repeat complete blood count. Call 911 or return to the ED should you develop signs of infection. Acute Coronary Syndrome Inclusion Criteria At DC or during hospital stay patient has or had the following: ACS DIAGNOSIS No Discharge Core Measures Meds if any: Prescribed or Continued at Discharge Meds if any: NOT Prescribed or Continued at Discharge Congestive Heart Failure Inclusion Criteria At DC or during hospital stay patient has or had the following: CHF DIAGNOSIS No Discharge Core Measures Meds if any: Prescribed or Continued at Discharge Meds if any: NOT Prescribed or Continued at Discharge Cerebrovascular accident Inclusion Criteria At DC or during hospital stay patient has or had the following: CVA/TIA Diagnosis No Discharge Core Measures Meds if any: Prescribed or Continued at Discharge Meds if any: NOT Prescribed or Continued at Discharge Venous thromboembolism Inclusion Criteria VTE Diagnosis No VTE Type NONE VTE Confirmed by (Test) NONE Discharge Core Measures - Per Current guidelines, there needs to be overlap - treatment for the first 5 days of Warfarin therapy. - If discharged on Warfarin prior to 5 days of - overlap therapy, the patient will need to be - assessed for post discharge needs including - *Post discharge parental anticoagulation - *Warfarin and/or parental anticoagulation education - *Follow up date to check INR post discharge At least 5 days overlap therapy as Inpatient No Meds if any: Prescribed or Continued at Discharge Note: Overlap Therapy is Warfarin and Anticoagulant Meds if any: NOT Prescribed or Continued at Discharge
[2017-08-07 14:46] VITALS: BP 110/60
--- NOTE | 2017-08-07 15:56 | Discharge Summary ---
Visit Information Visit Dates Admission Date: 08/06/17 Discharge Date: 08/07/17 Hospital Course Course Attending Physician: Yas Flor MD Primary Care Physician: Mariam Billings MD Consulting Request: Consulting Specialty: Cardiology Hospital Course: 77-year-old woman with past medical history of hypertension, chronic kidney disease stage III, nephrolithiasis, gfc-nxmkvjo-bpagjtzzi diabetes mellitus, hypothyroidism, osteoarthritis, and vasovagal syncope seen for evaluation of lightheadedness with loss of consciousness. Patient reported waking in her normal state of health on the day of admission. She used the rest room several times and went to brush her teeth when she was standing at the sink and became "whoozy". She sat down on the toilet seat at grabbed onto the installed handrail. She then lost consciouness for an brief unknown amount of time. She awoke sitll sitting on the toilet. She did not become incontinent of urine or stool, bite her tongue, or suffer any injury. She did not eat, drink or take her medications that morning. She reports that this happened in the past with an unremarkable workup. Vital signs -Temperature: 97.9 -Heart rate: 97 -Respiratory rate: 15 -Blood pressure: 128/70 -O2 sat: 94% on room air Physical exam -Gen.: Well-developed, well-nourished elderly woman in no acute distress -HEENT: NCAT, PERRLA, EOMI, anicteric sclera, moist mucous membranes -Neck: Supple, no JVD, trachea midline -Cardio: Normal S1/S2 without murmurs/gallops/rubs; tachycardic -Pulmonary: Clear to auscultation bilaterally -Abdomen: Soft, nontender, nondistended, bowel sounds intact -Neuro: Awake and alert, cranial nerves II through XII grossly intact -Extremities: Trace bilateral pedal edema Labs/imaging/studies -CBC: WBC/band 16.9/4, hemoglobin 12.4, hematocrit 37.7, platelets 279 -BMP: Sodium 138 potassium 4.5, chloride 101, CO2 22, urea 23, creatinine 1.5, anion gap 15, glucose 159 -LFT: Within normal limits -Miscellaneous: Troponin I <0.01 -EKG: normal sinus rhythm, HR 90, nonspecific ST segment changes and inferior leads -CXR: No acute intrathoracic disease -CT head without IV contrast: * Unremarkable CT scan of the head. No evidence of acute territorial infarct or hemorrhage. Problem List -Syncope, likely vasovagal -SIRS, no clear source -Loose stool -Chronic Kidney Disease -Shortness of breath, reportedly may have "Sjogrens" -Non-insulin dependent diabetes mellitus -History of vasovagal syncope -Nephrolithiasis -Osteoarthritis Hospital Course Patient was admitted to the telemetry floor for continuous telemetry monitoring. She received one bag of intravenous fluids but was eating / drinking well. Orthostatic blood presures were negative. Telemetry and serial troponin / EKGs were unremarkable. Echocardiogram demonstrated an LVEF of 55-60% without regional wall motion abnormalities; a small pericardial effusion was seen. Patients WBC was found to be elevated for unclear significance. Patient denied any symptoms. Patient is discharged to home with instruction to follow up with her PCP for repeat blood work early next week. Allergies: Coded Allergies: orange juice (Intermediate, SCRATCHY THROAT 08/06/17) [place] And Derivatives (SCRATCHY THROAT 08/06/17) lemon (LEMON JUICE SCRATCHY THROAT 08/06/17) morphine (SYNCOPE 08/06/17) sulfamethoxazole (From BACTRIM) (NAUSEA, LIGHT HEADED 08/06/17) trimethoprim (From BACTRIM) (NAUSEA, LIGHT HEADED 08/06/17) Significant Procedures: SERVICE DATE: 08/06/17 EXAM TYPE: RAD - XRY-CHEST XRAY, TWO VIEWS IMPRESSION: No acute intrathoracic disease. SERVICE DATE: 08/06/17 EXAM TYPE: CAT - CT HEAD WO IV CONTRAST IMPRESSION: Unremarkable CT scan of the head. No evidence of acute territorial infarct or hemorrhage. SERVICE DATE: 08/06/17 EXAM TYPE: CARD - ECHOCARDIOGRAM 1. Aortic sclerosis is present with no valvular stenosis or insufficiency. 2. Mitral leaflet thickening is present wtih minimal mitral insufficiency. 3. A small pericardial effusion is present which is hemodynamically insignificant. 4. The left ventricular chamber size and systolic function appear normal with no resting wall motion abnormalities. 5. Mild tricuspid and pulmonic insufficiency are present wtih no evidence of pulmonary hypertension. 6. When compared to the prior echocardiogram of 2016, the pericardial effusion is a new finding Disposition Summary Disposition Principal Diagnosis: Vasovagal Syncope Additional Diagnosis: Leukocytosis Discharge Disposition: home or self care Discharge Instructions General Discharge Information Code Status: Full Code Patient's Diet: Diabetic diet Patient's Activity: As tolerated Follow-Up Instructions/Appts: Follow up with your primary care provider Dr. Billings next week for a repeat complete blood count. Call 911 or return to the ED should you develop signs of infection. Medications at Discharge Discharge Medications: Continue taking these medications: Amlodipine Besylate (Amlodipine Besylate) 10 MG TABLET 1 Tablet ORAL DAILY Aspirin (Ecotrin*) 81 MG TABLET.DR 1 Tablet ORAL DAILY Levothyroxine Sodium (Levothyroxine Sodium) 25 MCG TABLET 1 Tablet ORAL DAILY Qty = 90 Comments: Last Taken: 03/30/16 Time: 7AM Sitagliptin Phosphate (Januvia) 50 MG TABLET 1 Tablet ORAL DAILY Qty = 90 Comments: NOT GIVEN IN HOSPITAL Glimepiride (Glimepiride) 4 MG TABLET 1 Tablet ORAL DAILY Metronidazole (Metrocream) 0.75 % CREAM..G. 1 Application On the skin TWICE DAILY Qty = 45 Instructions: apply to affected area(s) Comments: NOT GIVEN IN HOSPITAL Potassium Citrate (Potassium Citrate ER) 10 MEQ (1,080 MG) TABLET.ER 1 Tablet ORAL TWICE DAILY Qty = 270 Polyethylene Glycol 3350 (Miralax) 17 GRAM POWD.PACK 1 Packet ORAL DAILY Instructions: dissolve in water Losartan Potassium (Losartan Potassium) 25 MG TABLET 1 Tablet ORAL DAILY Qty = 30 Atorvastatin Calcium (Atorvastatin Calcium) 20 MG TABLET 1 Tablet ORAL TAKE AT BEDTIME Qty = 30 Hydrochlorothiazide (Hydrochlorothiazide) 12.5 MG CAPSULE 1 Capsule ORAL DAILY Qty = 90 Acetaminophen (Acetaminophen) 500 MG TABLET 1 Tablet ORAL TWICE DAILY as needed for PAIN Metformin HCl (Metformin HCl) 500 MG TABLET 1 Tablet ORAL TWICE DAILY Qty = 36 Copies To: Manuelito LOCK,Mariam; Yves Bustillo MD
== END 2017-08-07 16:45 | DRG 312 ==
LOC: ERH 10:40 → ERHI 15:38 → 1NO 15:38 → ENRESERV 16:30 → ENTRNSPT 19:18 → EDTRNSPT 19:25 → EDTRNSPTSTS 19:25 → 1NO 19:37 → CMPTRNSPT 19:44 → 1NO 20:10 → ENPENDDIS 08-07 16:51
PROVIDERS: Emergency Medicine; Internal Medicine Interventional Cardiology
DX: R55 Syncope and collapse (principal); E11.22 Type 2 diabetes mellitus with diabetic chronic kidney disease; D64.9 Anemia, unspecified; N18.3 Chronic kidney disease, stage 3 (moderate); D72.829 Elevated white blood cell count, unspecified; E03.9 Hypothyroidism, unspecified; R00.0 Tachycardia, unspecified; N20.0 Calculus of kidney; Z88.1 Allergy status to other antibiotic agents; Z88.5 Allergy status to narcotic agent; Z88.2 Allergy status to sulfonamides; Z91.018 Allergy to other foods; Z79.84 Long term (current) use of oral hypoglycemic drugs; Z90.49 Acquired absence of other specified parts of digestive tract; Z96.653 Presence of artificial knee joint, bilateral; I12.9 Hypertensive chronic kidney disease with stage 1 through stage 4 chronic kidney disease, or unspecified chronic kidney disease; E83.42 Hypomagnesemia
CPT/HCPCS: 1NP; 36592; 71046; 81001; 82436; 87086; 93005; 93010; 93306; J1644

== ENCOUNTER → 2017-09-25 | Day surgery (SDC) | payer OTHER ==
[~2017-09-25] VITALS: Ht 160 cm; Wt 105.7 kg
[~2017-09-25] MED LIST changes: +METFORMIN HCL500 M3 PO
--- NOTE | 2017-09-25 10:41 | Operative Report ---
See Addendum Operative/Inv Procedure Report Surgery Date: 09/25/17 Name of Procedure: Parotid gland biopsy, right Pre-Operative Diagnosis: Rule out Sjogren syndrome Post-Operative Diagnosis: Same Estimated Blood Loss: scant Surgeon/Asphalt Worker: Olya Huynh MD Anesthesia: laryngeal mask airway Specimens: Right parotid Complications: None Condition: Stable on leaving the OR Operative Indication: Overlying connective tissue disease Operative/Procedure Note Note: The patient was brought to the operating room, placeded on the operating room table in supine position. At first timeout was performed including patient's identification and the surgical procedure to be performed. Then general anesthesia was induced with LMA tube. Table was rotated 90 to the patient's right away from anesthesia with right face and neck toward the surgeon. Head was rotated to the left, right face and neck exposed . Face and neck were then prepped and draped in the routine manner and surgery was performed. Parotid incision was then marked in infraauricular region extending horizontally in a skin crease manner along the lateral neck. The incision was crosshatched over the horizontal part of the proposed incision. Tail of Parotid gland was palpated. Incision was placed through the skin into the subcutaneous tissue. Further dissection was carried in a blunt manner with a Sanchez. Periparotid fascia was identified and entered exposing the parotid gland lobules. Biopsy of the parotid gland lobules was then done several fragments were removed. Care was taken not to injure greater auricular nerve. The nerve was identified and preserved. Bleeding was controlled with bipolar. Surgery was completed. Wound was copiously irrigated. Additional bleeding sites cauterized with bipolar. Helotene powder was placed into the neck dissection bed. Closure was then carried at first periparotid fascia was closed with 4-0 Vicryl inverting sutures followed by subcuticular stitches with 4-0 Vicryl. Dermabond was applied to the incision followed by Steri-Strips. Pressure dressing was placed with iodoform gauze, fluffs and wraparound four-inch gauze. Patient was then reawakened, extubated and taken to the recovery room in good condition. There were no complications. Estimated blood loss was scant. Marginal mandibular nerve was fully moving once patient fully woke up. Findings: Parotid gland tissue normal in appearance Discharge Disposition: Same Day Admissions Patient was then reawakened, extubated and taken to the recovery room in good condition. There were no complications. Estimated blood loss was scant. Marginal mandibular nerve was fully moving once patient fully woke up. another version The patient was brought to the operating room, placeded on the operating room table in supine position. At first timeout was performed including patient's identification and the surgical procedure to be performed. Then general orotracheal anesthesia was induced with oral endotracheal tube. Table was rotated 90 to the patient's left away from anesthesia with left face and neck toward the surgeon. Head was rotated to the right, left face and neck exposed . The NIMS monitor was set on parotidectomy with 4 leads monitor. Electrodes were inserted into the upper and lower eyelids, buccal area and lower and ground electrodes were placed over the sternum, electrodes were then connected to the NIMS monitor. The electrodes were was secured in place with OpSite. Transparent drape was placed over the face for monitoring of the facial movement. Eye was protected with Steri-Drape. Face and neck were then prepped and draped in the routine manner and surgery was performed. Parotidectomy incision was then marked in preauricular region curving around the ear lobe and extending horizontally in a skin crease manner along the lateral neck. The incision was crosshatched and carried with a 15 blade in the preauricular region curving around the earlobe and extending onto the neck in a horizontal fashion. 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 The tumor was mobile. First dissection was carried in the preauricular area directly anterior to the external auditory canal. Next dissection was carried anterior inferior to the ear canal. In the superficial layer branch of the greater auricular nerve extending to the earlobe was identified and preserved. Further dissection was carried around the nerve to preserve it. Next all facial skin was elevated directly over the parotid gland and retracted with 2-0 silk sutures. Next dissection was carried over the inferior aspect of the incision were sternocleidomastoid muscle was identified with its anterior border. Next dissection was carried in preauricular area and deep slightly inferior to the ear canal in the anticipated location of the facial nerve. Facial nerve trunk was identified by visualization and confirmed by stimulating it with NIMS monitor. Facial nerve was then dissected. Tumor was palpated and it was located directly over facial nerve trunk. Then, dissection was carried down around the tumor and through the gland at first the anterior surface of the tumor was freed and then deep surface was freed. Dissection was carried with constant visualizaton of the facila nerve. At times nerve monitor was used throughout stimulated for possible peripheral branches of the nerve. In the anterior dissection nerve stimulator revealed close proximity of the buccal branch. Further dissection was done very carefully until the nerve was fully identified and freed from the tumor. Deep, posterior facial vein was identified and dissected away from the tumor. Tumor was finally freed and removed from its bed. Surgery was completed. Wound was copiously irrigated. Additional bleeding sites cauterized with bipolar. Helotene powder was placed into the neck dissection bed. A #10 [place] suction drain was inserted into the wound for drainage, exiting over the posterior aspect of the incision. Drain was stitched in place with 2-0 silk. Closure was then carried at with 4-0 Vicryl inverting sutures followed by skin closure with 5-0 Vicryl horizontal subcuticular running stitch. Dermabond was applied to the incision followed by Steri-Strips. Drain tubing was connected to the self suction carnisters. Sterile towel was placed over the wound and neck was rotated to left, right neck exposed prepped with Betadine and sterilely dressed. There was approximately 2 x 2 cm projection over the anterior lateral neck. Horizontal incision was placed directly over the lesion through the skin and subcutaneous tissue. The subcutaneous layer cystic lesion was identified which appeared to be sebaceous gland cyst. Dissection was carried circumferentially around the cyst wall untill the cyst was freed and removed. Closure was carried in layers with 5-0 Vicryl deep inverting stitch followed by a horizontal subcuticular running stitch. Dermabond was applied followed by Steri-Strips. Now attention was paid again to the parotidectomy site on the left. Iodoform gauze was placed directly over the surgery site followed by fluffs followed by wraparound pressure dressing. Patient was then reawakened, extubated and taken to the recovery room in good condition. There were no complications. Estimated blood loss was scant. Facial nerve branches were fully mobile once patient fully woke up.
== END ==
LOC: STS 03:16
DX: K11.7 Disturbances of salivary secretion (principal); J84.9 Interstitial pulmonary disease, unspecified; E11.22 Type 2 diabetes mellitus with diabetic chronic kidney disease; I12.9 Hypertensive chronic kidney disease with stage 1 through stage 4 chronic kidney disease, or unspecified chronic kidney disease; N18.3 Chronic kidney disease, stage 3 (moderate); Z87.891 Personal history of nicotine dependence; Z79.84 Long term (current) use of oral hypoglycemic drugs; E03.9 Hypothyroidism, unspecified; R06.02 Shortness of breath; Z22.322 Carrier or suspected carrier of Methicillin resistant Staphylococcus aureus
CPT/HCPCS: 88305; J0131; J0690; J1100; J2250; J2405; J2765